=== PATIENT | female | born 1980 | race Caucasian/White ===

== ENCOUNTER → 2016-12-19 | Outpatient (CLI) | payer MEDICAID ==
--- NOTE | 2016-12-19 13:25 | RADIOLOGY REPORT (SQ) ---
EXAM DESCRIPTION: SKULL ROUTINE 4 VIEWS COMPLETED DATE/TIME: 12/19/2016 1:13 pm REASON FOR STUDY: SUPERFICIAL SWELLING OF SCALP R22.0 LOCALIZED SWELLING, MASS AND LUMP, HEAD COMPARISON: None. FLUOROSCOPY TIME: This was not done is a fluoroscopy procedure. TECHNIQUE: Routine radiographic images acquired. . NUMBER OF IMAGES: 4 images LIMITATIONS: None. FINDINGS: Routine images of the skull show the calvarium to be intact. The sella is normal. Facial bones appear to be intact. IMPRESSION: Normal skull. COMMENT: Quality ID [id number]: Final reports for procedures using fluoroscopy that document radiation exp osure indices, or exposure time and number of fluorographic images (if radiation exposure indices are not available) Please consult full operative report of the attending physician for description of the procedure. TECHNICAL DOCUMENTATION: JOB ID: [id number] [employer]- All Rights Reserved
== END ==
LOC: RAD 12:43
PROVIDERS: ATTEND Family Medicine
DX: R22.0 Localized swelling, mass and lump, head (principal)
CPT/HCPCS: 70260